=== PATIENT | female | born 1970 ===

== ENCOUNTER 2019-05-12 08:56 | Day surgery (SDC) | payer BC ==
[2019-05-12] VITALS (8 sets, daily range): BP systolic 106–133; BP diastolic 74–98
[~2019-05-12] VITALS: Ht 160 cm; Wt 65.8 kg
[~2019-05-12 08:56] MED LIST: HYDROCHLOROTH12.5 M2 ORAL; LR 1000ml 1,000 ML IVLG SCH
[2019-05-12] MEDS ORDERED: Lidocaine 1% MPF 10mg/ml 5ml ONE (10:00)
[2019-05-12] MEDS ORDERED: Propofol 200mg/20ml IV ONE (10:00)
[2019-05-12] MEDS ORDERED: LR 1000ml ONE (10:00)
--- NOTE | 2019-05-12 10:08 | Short Stay Surgery H&P ---
History of Present Illness History of Present Illness Chief Complaint See attached H&P HPI Emily Rhoades is a 48 year old female who was admitted on for Colon Screening Patient History Allergies: Coded Allergies: PENICILLINS (Verified Allergy, Unknown, Rash, 05/12/19) LACTOSE (Verified Adverse Reaction, Severe, Diarrhea/Bloating , 05/12/19) Medication History Scheduled Hydrochlorothiazide* (Hydrochlorothiazide*), 12.5 MG ORAL DAILY, (Reported) Physical Exam Vital Signs Last Vital Signs Date Time Temp Pulse Resp B/P (MAP) Pulse Ox O2 Delivery O2 Flow Rate FiO2 05/12/19 09:27 97.8 77 18 122/74 98 Room Air Plan Attestation Are the patient's medical conditions optimized for surgery? Gera Jerry MD May 12, 2019 10:08
--- NOTE | 2019-05-12 10:08 | Pre-Procedure Note/Attestation ---
Pre-Procedure Note/Attestation Complete Prior to Procedure Planned Procedure: not applicable Procedure Narrative: colon Indications for Procedure Pre-Operative Diagnosis: screening Attestation I attest that I discussed the nature of the procedure; its benefits; risks and complications; and alternatives (and the risks and benefits of such alternatives ), prior to the procedure, with the patient (or the patient's legal financial representative). I attest that, if there was a reasonable possibility of needing a blood transfusion, the patient (or the patient's legal financial representative) was given the [facility] standardized written summary, pursuant to the Kevin Kaitlynn Blood Safety Act ([place] Health and Safety Code # 1645, as amended). I attest that I re-evaluated the patient just prior to the surgery and that there has been no change in the patient's H&P, except as documented below: Gera Jerry MD May 12, 2019 10:08
[2019-05-12] MEDS ORDERED: LR 1000ml 1,000 ML IVLG SCH (10:22)
[2019-05-12] MEDS ORDERED: Meperidine 50mg/ml Inj(FOR RIGORS ONLY) IVP PRN (10:30)
[2019-05-12] MEDS ORDERED: HYDROcodone/Acetamin 5/325 tab ORAL PRN (10:30)
[2019-05-12] MEDS ORDERED: Ketorolac 30mg Inj IV PRN ×2 (10:30)
[2019-05-12] MEDS ORDERED: Hydromorphone 0.5mg/0.5ml inj IVP PRN (10:30)
[2019-05-12] MEDS ORDERED: Metoclopramide 10mg/2ml Inj IVP PRN (10:30)
[2019-05-12] MEDS ORDERED: DiphenhydrAMINE 50mg/ml Inj IVP PRN (10:30)
[2019-05-12] MEDS ORDERED: oxyCODONE HCL/Acetaminophen 5/325mg ORAL PRN (10:30)
[2019-05-12] MEDS ORDERED: HYDROcodone/Acetamin 7.5/325 tab ORAL PRN (10:30)
[2019-05-12] MEDS ORDERED: fentaNYL 100 mcg/2 mL IV PRN (10:30)
[2019-05-12] MEDS ORDERED: Midazolam 2mg/2ml Inj IVP PRN (10:30)
[2019-05-12] MEDS ORDERED: Atropine Sulfate 0.4mg/ml inj IVP PRN (10:30)
[2019-05-12] MEDS ORDERED: Labetalol 5mg/ml 20ml vial IV PRN (10:30)
[2019-05-12] MEDS ORDERED: LORazepam Inj 2mg/ml 1ml IV PRN (10:30)
--- NOTE | 2019-05-12 10:33 | Anethesia Preoperative Eval ---
Anesthesia Pre-op PMH/ROS General Date of Evaluation: May 12, 2019 Time of Evaluation: 09:46 Anesthesiologist: El ASA Score: ASA 2 Mallampati Score Class I : Soft palate, uvula, fauces, pillars visible Class II: Soft palate, uvula, fauces visible Class III: Soft palate, base of uvula visible Class IV: Only hard plate visible Mallampati Classification: Class II Surgeon: Claritza Diagnosis: Abd Pain Surgical Procedure: Colonoscopy Anesthesia History: none Family History: no anesthesia problems Allergies: Coded Allergies: PENICILLINS (Verified Allergy, Unknown, Rash, 05/12/19) LACTOSE (Verified Adverse Reaction, Severe, Diarrhea/Bloating , 05/12/19) Medications: see eMAR Patient NPO?: Yes Past Medical History Cardiovascular: Reports: HTN PSxH Narrative: C/S Anesthesia Pre-op Phys. Exam Physician Exam Last Vital Signs Date Time Temp Pulse Resp B/P (MAP) Pulse Ox O2 Delivery O2 Flow Rate FiO2 05/12/19 09:27 97.8 77 18 122/74 98 Room Air Constitutional: NAD Neurologic: CN 2-12 intact Cardiovascular: RRR Respiratory: CTA Gastrointestinal: S/NT/ND Airway Exam Mallampati Score: Class II MO: full ROM: full Teeth: intact Anesthesia Pre-op A/P Risk Assessment & Plan Assessment: ASA 2 Plan: GA Status Change Before Surgery: Paramjit Garcia MD May 12, 2019 10:33
--- NOTE | 2019-05-12 10:33 | Immediate Post-Op Evaluation ---
Immediate Post-Op Evalulation Immediate Post-Op Evalulation Procedure: Colonoscopy Date of Evaluation: May 12, 2019 Time of Evaluation: 11:03 IV Fluids: 400 LR Blood Products: 0 Estimated Blood Loss: 1 Urinary Output: 0 Blood Pressure Systolic: 146 Blood Pressure Diastolic: 90 Pulse Rate: 90 Respiratory Rate: 16 O2 Sat by Pulse Oximetry: 100 Temperature (Fahrenheit): 97.6 Pain Score (1-10): 1 Nausea: No Vomiting: No Complications 0 Patient Status: awake, reacts, patent, extubated, none Hydration Status: adequate Paramjit Gallegos MD May 12, 2019 10:33
--- NOTE | 2019-05-12 10:35 | 48 Hour Post Anesthesia Eval ---
Post Anesthesia Evaluation Procedure: Colonoscopy Date of Evaluation: May 12, 2019 Time of Evaluation: 13:09 Blood Pressure Systolic: 133 0: 84 Pulse Rate: 78 Respiratory Rate: 19 Temperature (Fahrenheit): 98.2 O2 Sat by Pulse Oximetry: 99 Airway: patent Nausea: No Vomiting: No Pain Intensity: 1 Hydration Status: adequate Cardiopulmonary Status: Stable Mental Status/LOC: patient returned to baseline Follow-up Care/Observations: 0 Post-Anesthesia Complications: 0 Follow-up care needed: ready to discharge Paramjit Gallegos MD May 12, 2019 10:35
--- NOTE | 2019-05-12 11:49 | Endoscopy Procedure Note ---
Endoscopy Procedure Note General Indication for Procedure: screen Procedures Performed: colonoscopy Operative Findings/Diagnosis: dim polyp at 15-bx, nl TI x 10, rhoids Specimen: yes Pt Tolerated Procedure Well: Yes Estimated Blood Loss: none Anesthesia Anesthesiologist: El Anesthesia: MAC Medications Medication Given: see anesthesia record Inserted Devices Implant(s) used?: No GI Core Measures 50 yrs or older w/o bx or poly: No 10yrs. F/U recommended: No If not recommended, why?: Above average risk 18 years or older w/prev. colo: No <3yrs. since last colonoscopy: No Med reason:<3 yrs.: System Reason:<3 yrs.: Last colonoscopy >= to 3yrs: Yes Gera Jerry MD May 12, 2019 11:49
--- NOTE | 2019-05-12 11:50 | Brief Operative Note ---
Immediate Post Operative Note Operative Note Chief Complaint: scren Pre-op Diagnosis: screening Procedure: colon / bx Surgeon: eleonora Anesthesiologist: El Anesthesia: MAC, moderate sedation Specimen: yes Complications: none Condition: stable Fluids: recorded Estimated Blood Loss: none Drains: none Implant(s) used?: No Gera Jerry MD May 12, 2019 11:50
--- NOTE | 2019-05-13 06:30 | Operative Note - Dictated ---
DATE OF OPERATION: 05/12/2019 PROCEDURE: Colonoscopy with biopsy. SURGEON: Gera Jerry M.D. ANESTHESIA: Please see the separate anesthesiologist notes for details. PRE-ENDOSCOPIC DIAGNOSIS: Screening colonoscopy. POST-ENDOSCOPIC DIAGNOSES: 1. Normal terminal ileum to 10 cm. 2. Diminutive colon polyp at 16 cm, status post biopsy removal. 3. Mild internal hemorrhoids. DESCRIPTION OF PROCEDURE: The procedure, its risks, indications, alternatives, and possible complications were explained and informed consent was obtained. The patient was then sedated in the left lateral decubitus position. The rectal exam was done. The colonoscope was introduced into the rectum and advanced to the terminal ileum. The colonoscope was then gradually withdrawn. The mucosa was examined carefully. Examination of the colonic mucosa was normal for above findings. The retroflexed view of the rectum was unremarkable. The colonoscope was removed. The patient was sent to recovery in good condition. COMPLICATIONS: None. RECOMMENDATIONS: 1. Follow up biopsy results. 2. Outpatient followup. 3. Repeat colonoscopy in 5 years. 4. Thank you for asking me to participate in the care of this patient. Gera Jerry M.D. DR: Don JOB#: [id number] CC:
== END 2019-05-12 12:10 | disposition home or self-care (01) ==
LOC: GAS 08:56
DX: Z12.11 Encounter for screening for malignant neoplasm of colon (principal); K63.5 Polyp of colon; K64.8 Other hemorrhoids; Z88.0 Allergy status to penicillin; Z91.011 Allergy to milk products; I10 Essential (primary) hypertension
CPT/HCPCS: 45380; J2250; J2704; 94003; 94150